=== PATIENT | female | born 1955 | race Caucasian/White ===

== ENCOUNTER 2023-05-11 08:56 | Emergency (ER) | payer OTHER, SELFPAY ==
[2023-05-11 09:05] VITALS: BP 122/71
--- NOTE | 2023-05-11 09:57 | ED.GENMED ---
History of Present Illness
General
Chief Complaint: DVT/Possible Blood Clot
Source: patient
Exam Limitations: none
Time Seen by Provider: 05/11/23 09:38
Nursing documentation reviewed up to this point in time: agreed with
Travel History
Have you had any contact with someone who has COVID-19?: No
Do you have any symptoms of coronavirus? Fever > 100 degrees, chills, cough, shortness of breath, sore throat, loss of taste or smell, muscle aches, or headache?: No
History of Present Illness
History of Present Illness:
68-year-old female presents emergency department complaining of left leg pain, and upper and lower leg posteriorly. It hurts when she walks. This began 2 days ago. She has a history of breast cancer that was treated. Last chemotherapy and
radiation 2018.
Past History
Past History
ED Past Medical History: Cancer (R breast underging XRT June 2018) and Other (Clostridium difficile, arthritis)
ED Past Surgical History: Appendectomy, and Tonsilectomy
Social History
Tobacco: Non-smoker
Alcohol: Occasional
Drug: None
Personal:
Living: with family
Review of Systems
Review of Systems
Allergies reviewed?: Yes
All Other Systems: Not applicable
Constitutional: Reports no symptoms
EENT: Reports no symptoms
Respiratory: Reports no symptoms
Cardiac: Reports no symptoms
ABD/GI: Reports no symptoms
: Reports no symptoms
Musculoskeletal: Reports muscle pain
Skin: Reports no symptoms
Neurological: Reports no symptoms
Endocrine: Reports no symptoms
Hematologic/Lymphatic: Reports no symptoms
Psychiatric: Reports no symptoms
Phy Exam
Physical Exam
Physical Exam:
Physical Exam
General: no apparent distress, not acutely ill
Neck: supple. no meningeal signs.
Heart: equal radial and dorsalis pedis pulses 2+
HEENT: Pupils equal round reactive to light, EOMI
Lungs: no acute respiratory distress.
Abdomen:nondistended
Neuro: alert and oriented. no focal neurological deficits cranial nerves II through XII intact
Skin: no rash
Psychiatric: well kept. interactive and cooperative
Extremities: no edema. left calf tender to palpation. good distal pulses
Course
Orders/Labs/Results
Orders:
Orders
05/11/23 09:44
US Periph Venous LOWER Ext LT Urgent
Comment:
Reason For Exam: left leg pain 2 days
Vital Signs
Initial and Last Documented VS:
Initial Vital Signs
Temp Pulse Resp BP Pulse Ox
98.0 F 87 18 122/71 100
05/11/23 09:05 05/11/23 09:05 05/11/23 09:05 05/11/23 09:05 05/11/23 09:05
Last Documented Vital Signs
Temp Pulse Resp BP Pulse Ox
98.0 F 87 18 122/71 100
05/11/23 09:05 05/11/23 09:05 05/11/23 09:05 05/11/23 09:05 05/11/23 09:05
MDM/Problems Addressed
Differential Diagnosis Includes:
DVT, muscle strain, sciatica
MDM/Problems Addressed:
68-year-old female with left leg pain, no signs of DVT on ultrasound. Stable for discharge.
Chronic conditions affecting care: Cancer (Breast cancer)
*Radiology
Radiology exam reviewed: radiology read reviewed (Ultrasound left lower extremity no signs DVT)
*Pulse Oximetry
Patient hypoxic: no
*EKG
Interpreted by ED Provider?: NA
*Shaper Set Up Operator Interpretation
Rate: Shaper Set Up Operator- N/A
*Critical Care Note
Total Time (30-74mins, 75-104mins- exclusive of procedures): Not Applicable
Patient Management
Social determinants of health affecting care: Living situation
Escalation/DeEscalation of care consider admission/obs:
Admit not indicated
ED Attending Note
-
Portions of this chart may have been created with voice recognition software.� Occasional wrong word or��sound alike� substitutions may have occurred due to the inherent limitations of voice recognition software.
Discharge Plan
Departure
Patient Disposition: Home (Routine Discharge)
Date of Disposition: 05/11/23
Time of Disposition: 11:44
Patient with high blood pressure during this ER visit?: Yes
Condition: Good
Discharge Problem:
Acute pain of left lower extremity
Instructions: BLOOD PRESSURE, Musculoskeletal Pain
Prescriptions:
No Action
ascorbic acid (vitamin C) [Vitamin C] 500 MG tablet
1,000 mg PO PRN PRN (Reason: to prevent colds)
coenzyme Q10 [Co Q-10] 200 MG capsule
200 mg PO QPM
cholecalciferol (vitamin D3) 2,000 UNITS tablet
4,000 units PO DAILY
cannabidiol [Epidiolex] 1 UNIT solution
1 unit PO PRN PRN (Reason: pain, sleep)
Cucumin With Pepper 500 Mg [id number]
2 tab PO QPM
Transfer Multi Immune Tab
3 tablets PO DAILY
L.acidoph, paracasei,B. lactis 1 EACH capsule
1 ea PO QPM
multivitamin 1 EACH tablet
4 capsules PO QPM
tamoxifen 10 MG tablet
20 mg PO QPM
d-mannose (bulk) 1 GM powder
1,000 mg MC DAILY
Comprehensive Immune Support
2 capsules PO DAILY
Urinary Health Complex
2 cap PO DAILY
ibuprofen 600 MG tablet
600 mg PO Q6 PRN (Reason: pain) Qty: 30 0RF
cephalexin 500 mg capsule
500 mg PO QID Qty: 28 0RF
Referrals:
Trena Palmer MD [Family Provider] - Call in 1-3 days for appt
Interventions
Interventions:
*Risk Screen - Suicide Last Done: 05/11/23 10:01
*General Assessment Last Done: 05/11/23 10:01
*Neglect/Abuse Screening Last Done: 05/11/23 10:01
ED- Fall Risk Assessment Last Done: 05/11/23 10:01
*ED COVID-19 Vaccine History Last Done: 05/11/23 10:01
ED- Cardiac Assessment Last Done: 05/11/23 10:01
ED- Pulmonary Assessment Last Done: 05/11/23 10:01
ED-Peripheral Vascular Assessment Last Done: 05/11/23 10:01
ED-Skin Assessment Last Done: 05/11/23 10:01
Discharge Date and Time
Print Language: BELARUSIAN
[2023-05-11 10:01] VITALS: BMI 41.2
[2023-05-11 11:58] VITALS: BP 124/62
--- NOTE | 2023-05-11 11:58 | EDRN ---
Reviewed discharge instructions with patient. Verbalized understanding. Ambulated with steady gait to the lobby.
== END 2023-05-11 11:59 | disposition home or self-care (01) ==
LOC: EMR 08:56
PROVIDERS: EMERGENCY PHYSICIAN Emergency Medicine; FAMILY PHYSICIAN Family Medicine
DX: M79.605 Pain in left leg (principal); M79.18 Myalgia, other site; R03.0 Elevated blood-pressure reading, without diagnosis of hypertension; Z85.3 Personal history of malignant neoplasm of breast; Z92.3 Personal history of irradiation; Z88.2 Allergy status to sulfonamides; Z88.1 Allergy status to other antibiotic agents; Z91.040 Latex allergy status
CPT/HCPCS: 99284; 93971

== ENCOUNTER → 2023-06-03 07:46 | Outpatient (REF) | payer OTHER, SELFPAY ==
[2023-06-03 08:46] LABS: % Eosinophils 2.4 % (0-6); % Immature Granulocytes 0.3 % (0-0.5); % Lymphocytes 18.4 % (20.5-51.1); % Monocytes 6.9 % (1.7-9.3); Absolute Basophils 0.1 10^3/uL (0-0.2); Absolute Eosinophils 0.2 10^3/uL (0-0.7); Absolute Lymphocytes 1.3 10^3/uL (1.2-3.4); Absolute Monocytes 0.5 10^3/uL (0.1-0.6); Absolute Neutrophils 4.9 10^3/uL (1.4-6.5); Hematocrit 39.2 % (37.0-47.0); Hemoglobin 12.4 g/dL (12.0-16.0); Mean Corp Hgb Conc. 31.6 g/dL (33.0-37.0); Mean Corpuscular Hgb 27.8 pg (27.0-31.0); Mean Corpuscular Volume 87.9 fL (81.0-99.0); Mean Platelet Volume 11.4 fL (7.4-10.4); Nucleated Red Blood Cells % 0 %; Platelet Count 301 10^3/uL (130-400); Red Blood Cell Count 4.46 10^6/uL (4.20-5.40); Red Cell Dist. Width 13.4 % (11.5-14.5); White Blood Cell Count 6.9 10^3/uL (4.8-10.8)
[2023-06-03 09:27] LABS: ALT (SGPT) 37 U/L (0-35); AST (SGOT) 38 U/L (14-36); Albumin 4.1 g/dl (3.5-5.0); Alkaline Phosphatase 77 U/L (38-126); Blood Urea Nitrogen 15 mg/dl (7-17); Calcium 9.5 mg/dl (8.4-10.2); Carbon Dioxide 27 mmol/L (22-30); Chloride 106 mmol/L (98-107); Glucose 86 mg/dl (70-99); HDL Cholesterol 64 mg/dl; LDL Cholesterol, Calculated 109 mg/dl; Potassium 4.8 mmol/L (3.5-5.1); Sodium 140 mmol/L (135-145); Total Bilirubin 0.4 mg/dl (0.2-1.3); Total Cholesterol 193 mg/dl (50-199); Total Protein 7.1 g/dl (6.3-8.2); Triglyceride 101 mg/dl (10-149); Very Low Density Lipoprotein 20 mg/dl (0-30); eGFR > 60.00
[2023-06-03 14:15] LABS: TSH Reflex To Free T4 3.84 uIU/ml (0.47-4.68)
== END ==
LOC: RAD 07:46
PROVIDERS: ATTENDING PHYSICIAN Family Medicine
DX: E66.01 Morbid (severe) obesity due to excess calories (principal); Z00.00 Encounter for general adult medical examination without abnormal findings; R53.83 Other fatigue; R05.3 Chronic cough
CPT/HCPCS: 36415; 71046; 80053; 80061; 84443; 85025

== ENCOUNTER → 2023-07-28 12:02 | Outpatient (REF) | payer OTHER, SELFPAY | LOC: RAD 12:02 | PROVIDERS: ATTENDING PHYSICIAN Family Medicine | DX: M81.0 Age-related osteoporosis without current pathological fracture (principal) | CPT/HCPCS: 77080 ==

== ENCOUNTER → 2023-11-17 08:35 | Outpatient (REF) | payer OTHER, SELFPAY ==
[2023-11-17 10:01] LABS: % Basophils 0.9 % (0-2); % Eosinophils 2.8 % (0-6); % Immature Granulocytes 0.1 % (0-0.5); % Lymphocytes 19.9 % (20.5-51.1); % Monocytes 6.7 % (1.7-9.3); % Neutrophils 69.6 % (42.2-75.2); Absolute Basophils 0.1 10^3/uL (0-0.2); Absolute Eosinophils 0.2 10^3/uL (0-0.7); Absolute Lymphocytes 1.6 10^3/uL (1.2-3.4); Absolute Monocytes 0.5 10^3/uL (0.1-0.6); Absolute Neutrophils 5.5 10^3/uL (1.4-6.5); Hematocrit 37.4 % (37.0-47.0); Mean Corp Hgb Conc. 32.1 g/dL (33.0-37.0); Mean Corpuscular Hgb 27.9 pg (27.0-31.0); Nucleated Red Blood Cells % 0 %; Platelet Count 277 10^3/uL (130-400); Red Cell Dist. Width 13.6 % (11.5-14.5); White Blood Cell Count 7.9 10^3/uL (4.8-10.8)
[2023-11-17 10:44] LABS: ALT (SGPT) 23 U/L (0-35); AST (SGOT) 26 U/L (14-36); Albumin 2.6 g/dl (3.5-5.0); Alkaline Phosphatase 61 U/L (38-126); Calcium 9.1 mg/dl (8.4-10.2); Carbon Dioxide 26 mmol/L (22-30); Chloride 106 mmol/L (98-107); Glucose 73 mg/dl (70-99); Sodium 144 mmol/L (135-145); Total Protein 6.6 g/dl (6.3-8.2); eGFR > 60.00
[2023-11-17 11:26] LABS: Blood Urea Nitrogen 16 mg/dl (7-17); Total Bilirubin 0.2 mg/dl (0.2-1.3)
== END ==
LOC: REG 08:35
PROVIDERS: ATTENDING PHYSICIAN Internal Medicine Hematology & Oncology; FAMILY PHYSICIAN Family Medicine
DX: C50.411 Malignant neoplasm of upper-outer quadrant of right female breast (principal)
CPT/HCPCS: 36415; 80053; 85025

== ENCOUNTER → 2023-12-05 14:37 | Outpatient (REF) | payer OTHER, SELFPAY | LOC: WDC 14:37 | PROVIDERS: ATTENDING PHYSICIAN Family Medicine | DX: Z12.31 Encounter for screening mammogram for malignant neoplasm of breast (principal) | CPT/HCPCS: 77063; 77067 ==

== ENCOUNTER 2024-04-05 12:07 | Outpatient (RCR) | payer OTHER, SELFPAY | END 2024-04-05 23:59 | disposition home or self-care (01) | LOC: RPT 12:07 | PROVIDERS: ATTENDING PHYSICIAN Family Medicine | DX: M51.369 Other intervertebral disc degeneration, lumbar region without mention of lumbar back pain or lower extremity pain (principal); M48.061 Spinal stenosis, lumbar region without neurogenic claudication; Z73.6 Limitation of activities due to disability; M25.552 Pain in left hip; M25.551 Pain in right hip; R26.89 Other abnormalities of gait and mobility | CPT/HCPCS: 97010; 97110; 97112; 97140; 97162 ==

== ENCOUNTER 2024-05-03 16:05 | Outpatient (RCR) | payer OTHER, SELFPAY | END 2024-05-03 23:59 | disposition home or self-care (01) | LOC: RPT 16:05 | PROVIDERS: ATTENDING PHYSICIAN Family Medicine | DX: M51.369 Other intervertebral disc degeneration, lumbar region without mention of lumbar back pain or lower extremity pain (principal); M48.061 Spinal stenosis, lumbar region without neurogenic claudication; Z73.6 Limitation of activities due to disability; M25.552 Pain in left hip; M25.551 Pain in right hip; R26.89 Other abnormalities of gait and mobility | CPT/HCPCS: 97010; 97110; 97112; 97140 ==

== ENCOUNTER → 2024-06-15 08:13 | Outpatient (REF) | payer OTHER, SELFPAY ==
[2024-06-15 09:24] LABS: % Basophils 1.1 % (0-2); % Eosinophils 1.8 % (0-6); % Immature Granulocytes 0.2 % (0-0.5); % Lymphocytes 19.4 % (20.5-51.1); % Neutrophils 69.5 % (42.2-75.2); Absolute Basophils 0.1 10^3/uL (0-0.2); Absolute Eosinophils 0.1 10^3/uL (0-0.7); Absolute Lymphocytes 1.3 10^3/uL (1.2-3.4); Absolute Monocytes 0.5 10^3/uL (0.1-0.6); Absolute Neutrophils 4.5 10^3/uL (1.4-6.5); Hematocrit 37.2 % (37.0-47.0); Mean Corp Hgb Conc. 32.3 g/dL (33.0-37.0); Mean Corpuscular Hgb 28.4 pg (27.0-31.0); Mean Corpuscular Volume 87.9 fL (81.0-99.0); Mean Platelet Volume 12.1 fL (7.4-10.4); Nucleated Red Blood Cells % 0 %; Platelet Count 262 10^3/uL (130-400); Red Blood Cell Count 4.23 10^6/uL (4.20-5.40); Red Cell Dist. Width 13.5 % (11.5-14.5); White Blood Cell Count 6.5 10^3/uL (4.8-10.8)
[2024-06-15 09:50] LABS: ALT (SGPT) 23 U/L (0-35); AST (SGOT) 25 U/L (14-36); Albumin 4.1 g/dl (3.5-5.0); Alkaline Phosphatase 75 U/L (38-126); Blood Urea Nitrogen 17 mg/dl (7-17); Carbon Dioxide 27 mmol/L (22-30); Chloride 108 mmol/L (98-107); Glucose 83 mg/dl (70-99); HDL Cholesterol 54 mg/dl; LDL Cholesterol, Calculated 111 mg/dl; Potassium 4.4 mmol/L (3.5-5.1); Sodium 143 mmol/L (135-145); Total Bilirubin 0.7 mg/dl (0.2-1.3); Total Cholesterol 176 mg/dl (50-199); Total Protein 6.7 g/dl (6.3-8.2); Triglyceride 56 mg/dl (10-149); Very Low Density Lipoprotein 11 mg/dl (0-30); eGFR > 60.00
[2024-06-15 10:16] LABS: TSH Reflex To Free T4 3.26 uIU/ml (0.47-4.68)
== END ==
LOC: REG 08:13
PROVIDERS: ATTENDING PHYSICIAN Family Medicine
DX: Z00.00 Encounter for general adult medical examination without abnormal findings (principal); R53.83 Other fatigue; E66.01 Morbid (severe) obesity due to excess calories
CPT/HCPCS: 36415; 80053; 80061; 84443; 85025

== ENCOUNTER → 2024-07-02 09:04 | Outpatient (REF) | payer OTHER, SELFPAY | LOC: REG 09:04 | PROVIDERS: ATTENDING PHYSICIAN Nurse Practitioner Family; FAMILY PHYSICIAN Family Medicine | DX: R68.89 Other general symptoms and signs (principal) | CPT/HCPCS: 36415; 86618 ==

== ENCOUNTER → 2024-07-28 08:43 | Outpatient (REF) | payer OTHER, SELFPAY | LOC: RAD 08:43 | PROVIDERS: ATTENDING PHYSICIAN Family Medicine | DX: M25.552 Pain in left hip (principal); M25.551 Pain in right hip; M25.562 Pain in left knee | CPT/HCPCS: 73522; 73564 ==

== ENCOUNTER → 2024-12-06 14:39 | Outpatient (REF) | payer OTHER, SELFPAY | LOC: WDC 14:39 | PROVIDERS: ATTENDING PHYSICIAN Family Medicine | DX: Z12.31 Encounter for screening mammogram for malignant neoplasm of breast (principal) | CPT/HCPCS: 77063; 77067 ==